=== PATIENT | male | born 1985 | race Caucasian/White ===

== ENCOUNTER 2023-04-16 09:04 | Outpatient (CLI) | payer BC, SELFPAY | END 2023-04-16 09:05 | disposition home or self-care (01) | PROVIDERS: PCP Family Medicine; Visit Provider Family Medicine | DX: Z00.00 Encounter for general adult medical examination without abnormal findings (principal); E78.2 Mixed hyperlipidemia; R74.01 Elevation of levels of liver transaminase levels | CPT/HCPCS: 80053; 80061 ==